=== PATIENT | female | born 1975 | race Caucasian/White ===

== ENCOUNTER 2016-04-19 09:13 | Emergency (ER) | payer SELFPAY | END 2016-04-19 10:01 | disposition home or self-care (01) | LOC: ED 09:13 | DX: B37.3 Candidiasis of vulva and vagina (principal); E11.9 Type 2 diabetes mellitus without complications; F17.200 Nicotine dependence, unspecified, uncomplicated; Z79.84 Long term (current) use of oral hypoglycemic drugs ==